=== PATIENT | female | born 1950 | race Hispanic/Latino ===

== ENCOUNTER 2025-05-24 13:09 | Emergency (ER) | payer OTHER ==
[~2025-05-24] VITALS: Ht 152.4 cm; Wt 64.4 kg
--- NOTE | 2025-05-24 13:25 | ERN ---
ED Note History of Present Illness Stated Complaint: RIGHT FACE PAIN Chief Complaint: Face Pain/Problem Time Seen by MD: 13:12 Dictation: PATIENT IS A 74-YEAR-OLD FEMALE HERE WITH HER DAUGHTER WITH COMPLAINTS OF HAVING PAINFUL CHEWING TO THE RIGHT TMJ AND LATERAL JAW FACE FOR THE LAST 3-4 MONTHS. NO FEVER NO CHILLS NO NAUSEA VOMITING. NO HEADACHE. SHE HAS ALREADY BEEN TO SEE HER PRIMARY CARE DOCTOR WHO REFERRED HER TO A DENTIST, WENT TO [facility] LAST WEEK. THEY DID A PANORAMIC 360 TOLD HER EVERYTHING WAS FINE HOWEVER SHE WAS REFERRED TO A SPECIALIST BECAUSE A PROBABLE TMJ DISEASE. SHE STATES NOBODY IN THE LAST 3-4 MONTHS HAS DONE ANYTHING FOR HER PAIN OTHER THAN MELOXICAM AND IBUPROFEN. Allergies: Coded Allergies: No Known Drug Allergies (Unverified Allergy, Unknown, 05/24/25) Past Medical History Past Medical History: High Cholesterol, Hypertension Surgical History: Hysterectomy History: Not Applicable RN Note Reviewed/Agreed w/PFSH: Yes Review of System Dictation CONSTITUTIONAL: NEGATIVE EXCEPT FOR HPI HEAD/FACE: NEGATIVE EXCEPT FOR HPI EENT: NEGATIVE EXCEPT FOR HPI RIGHT FACE/TMJ PAIN CHRONIC RESPIRATORY: NEGATIVE EXCEPT FOR HPI GASTROINTESTINAL/ABDOMINAL: NEGATIVE EXCEPT FOR HPI GENITOURINARY: NEGATIVE EXCEPT FOR HPI MUSCULOSKELETAL: NEGATIVE EXCEPT FOR HPI INTEGUMENTARY: NEGATIVE EXCEPT FOR HPI NEUROLOGICAL/PSYCH: NEGATIVE EXCEPT FOR HPI HEMATOLOGIC/LYMPHATIC: NEGATIVE EXCEPT FOR HPI ALL SYSTEMS NEGATIVE, EXCEPT NOTED ABOVE. 13 POINT REVIEW OF SYSTEMS ASSESSED AND ALL NEGATIVE EXCEPT FOR ABOVE. Initial Vital Sign VS Vital Signs Date Time Temp Pulse Resp B/P (MAP) Pulse Ox O2 Delivery O2 Flow Rate FiO2 05/24/25 13:11 98.2 77 16 151/85 98 Room Air Physical Exam Dictation VITAL SIGNS REVIEWED GENERAL APPEARANCE: ALERT, ORIENTED X 3, MODERATE ACUTE DISTRESS, WELL DEVELOPED, NOURISHED. HEAD AND FACE: NON-TRAUMATIC. EYES: PERRL, PINK CONJUNCTIVAS, EYELID NO TRAUMA, ANTERIOR CHAMBER WITH ARCUS SENILIS. EARS: PINNAS INTACT AND NO SIGNS OF TRAUMA OR ERYTHEMA EAR CANALS CLEAR AND NO DISCHARGE TM NO ERYTHEMA NOSE: NO DISCHARGE, NO BLEEDING. OROPHARYNX: MOUTH NORMAL, TONGUE PINK, INTACT FEELING TOOTH 2. NO GINGIVAL ER YTHEMA NO CARIES PROXIMAL THE PAIN. MILD CREPITATION WITH RANGE OF MOTION TO RIGHT TMJ. NO LYMPHADENOPATHY PHARYNX CLEAR,NO ERYTHEMA, TONSILS NO EXUDATES, NO ABSCESSES NOTED, MUCOUS MEMBRANE MOIST NECK: SUPPLE, NON-TENDER, NO THYROMEGALY, NO MASSES, NO JVD, NO BRUITS BREAST:DEFERRED CHEST:NO TENDERNESS, NO CREPITUS, NO PARADOXICAL MOVEMENT, NO RETRACTIONS LUNGS:CLEAR, WELL-VENTILATED, SYMMETRIC, NO RALES, NO WHEEZING, NO RHONCHI, NO STRIDOR, GOOD BREATH SOUNDS BILATERALLY HEART: REGULAR RATE, REGULAR RHYTHM, NO MURMUR, NO GALLOPS VASCULAR: NO PERIPHERAL EDEMA, ABDOMEN: SOFT, POSITIVE BOWEL SOUNDS, NONDISTENDED, NO GUARDING, NONTENDER, NO REBOUND, NO MASSES NO HEPATOMEGALY, NO SPLENOMEGALY, NO SUTHERLAND'S SIGN, NO HERNIAS. RECTAL: DEFERRED GENITAL: DEFERRED NEUROLOGICAL: NORMAL SPEECH, MOTOR FUNCTION INTACT, SENSORY FUNCTION INTACT MUSCULOSKELETAL: NECK NONTENDER, FULL RANGE OF MOTION, BACK NONTENDER, FULL RANGE OF MOTION, EXTREMITIES: NONTENDER, FULL RANGE OF MOTION SKIN: COLOR PINK, DRY, NO TURGOR, NO RASH, NO LACERATIONS, NO ABRASIONS, NO CONTUSIONS. LYMPHATIC: DEFERRED Results (Laboratory/Radiology) Laboratory/Radiology CT Maxillofacial without Intravenous Contrast. CLINICAL HISTORY: 74-year-old female with pain in the right face. TECHNIQUE: Axial computed tomography images of the face without intravenous contrast. Sagittal and coronal reformations performed. Dose reduction technique was used including one or more of the following: automated exposure control, adjustment of mA and kV according to patient size, and/or iterative reconstruction. CONTRAST: None. COMPARISON: None provided. FINDINGS: BONES: No acute fracture or focal osseous lesion. The mandible is intact. Mild degenerative changes of the temporomandibular joints bilaterally seen. SOFT TISSUES: Small lymph nodes are seen in the bilateral submandibular and triangles of the neck regions. SINUSES: The sinuses are clear. ORBITS: The orbits are normal. No retrobulbar hematoma or mass. IMPRESSION: 1. No acute findings within maxillofacial CT. 2. Mild degenerative changes of the temporomandibular joints bilaterally. /[facility] Reviewed?: Yes ED Course ED Course Orders Procedure Category Date Status Time Ct Maxillofacial W/O CT 05/24/25 Resulted Contrast 13:22 Hydrocodone/Apap PHA 05/24/25 Complete 5/325 ([place] 5/325mg) 13:30 Ketorolac PHA 05/24/25 Complete Tromethamine 30mg/Ml 13:30 Current Medications Medications (Trade) Dose Ordered Sig/Good Route PRN Reason Start Time Stop Time Status Last Admin Dose Admin Acetaminophen/ Hydrocodone Bitart (NORco 5/325MG) 1 tab ONCE ONCE PO 05/24/25 13:30 05/24/25 13:31 DC 05/24/25 14:03 Ketorolac Tromethamine (toRADol) 30 mg ONCE ONCE IM 05/24/25 13:30 05/24/25 13:31 DC 05/24/25 14:02 Vital Signs Date Time Temp Pulse Resp B/P (MAP) Pulse Ox O2 Delivery O2 Flow Rate FiO2 05/24/25 13:11 98.2 77 16 151/85 98 Room Air Medical Decision Making [facility] 1620/MEDICAL DISCHARGE MAKING BASED ON CT OF THE FACE ANTICIPATING TMJ DISEASE. PATIENT HAS SIGNIFICANT DJD BILATERAL TMJ RAISE WE WILL GIVE PATIENT PREDNISONE WITH THE OMEPRAZOLE TOLD FOLLOW UP WITH HER DENTIST NEXT 1-2 DAYS DX & DISP Disposition: Discharge Departure Impression: Primary Impression: TMJ (temporomandibular joint syndrome) Condition: Stable Scripts Omeprazole (Omeprazole) 40 Mg Capsule.dr 1 CAP PO DAILY for 30 Days, #30 CAP 0 Refills Prov: WILDA ALVES NP 05/24/25 Prednisone (Prednisone) 20 Mg Tablet 1 TAB PO AD for 6 Days, #14 TAB 0 Refills TAKE 1 TAB BY MOUTH THREE TIMES PER DAY X3 DAYS, THEN TAKE 1 TAB BY MOUTH TWICE A DAY X2 DAYS, THEN TAKE 1 TAB BY MOUTH ONCE A DAY X1 DAY. Prov: WILDA ALVES NP 05/24/25 Additional Instructions: FOLLOW-UP WITH PRIMARY CARE PROVIDER IN 1 TO 2 DAYS. TAKE MEDICATIONS DIRECTED HERE IN THE EMERGENCY ROOM. OKAY TO CONTINUE HOME MEDICATIONS UNLESS OTHERWISE DISCUSSED DURING YOUR VISIT IN THE EMERGENCY ROOM TODAY. RETURN TO YOUR NEAREST EMERGENCY ROOM IF SYMPTOMS WORSEN OR IF THERE IS NO IMPROVEMENT. CALL 911 IF YOU NEED IMMEDIATE ASSISTANCE. TAKE TYLENOL OR MOTRIN [id number] NEEDED AND IF NO CONTRAINDICATIONS ARE PRESENT. INCREASE ORAL HYDRATION. A WOUND CULTURE OR URINE CULTURE WAS ORDERED HERE IN THE EMERGENCY ROOM DEPARTMENT PLEASE FOLLOW-UP WITH PRIMARY CARE PROVIDER AND ADVISE THEM TO GET REPEAT PORTS FROM OUR FACILITY. IF YOU HAD ANY CRISTOBAL WRAP/SPLINTS THAT WERE APPLIED HERE, PLEASE DO NOT REMOVE THEM UNTIL YOU SEE YOUR PRIMARY CARE OR SPECIALTY. TAKE PREDNISONE AND OMEPRAZOLE DIRECTED. TAKE PREDNISONE DIRECTED WITH FOOD. FOLLOW UP WITH THE YOUR DENTIST IN THE NEXT 2-3 DAYS FOR MANAGEMENT. Time of Disposition: 16:24 I have reviewed the case, and I agree with, Diagnosis and Plan WILDA ALVES NP May 24, 2025 13:25
[2025-05-24] MEDS: HYDROcodone/APAP 5/325 1 TAB TABLET PO ONE (14:03)
--- NOTE | 2025-05-24 16:06 | HMCIMG ---
EXAM: CT Maxillofacial without Intravenous Contrast. CLINICAL HISTORY: 74-year-old female with pain in the right face. TECHNIQUE: Axial computed tomography images of the face without intravenous contrast. Sagittal and coronal reformations performed. Dose reduction technique was used including one or more of the following: automated exposure control, adjustment of mA and kV according to patient size, and/or iterative reconstruction. CONTRAST: None. COMPARISON: None provided. FINDINGS: BONES: No acute fracture or focal osseous lesion. The mandible is intact. Mild degenerative changes of the temporomandibular joints bilaterally seen. SOFT TISSUES: Small lymph nodes are seen in the bilateral submandibular and triangles of the neck regions. SINUSES: The sinuses are clear. ORBITS: The orbits are normal. No retrobulbar hematoma or mass. IMPRESSION: 1. No acute findings within maxillofacial CT. 2. Mild degenerative changes of the temporomandibular joints bilaterally. /[place]
[2025-05-24] MEDS ORDERED: PRED20TA3 PO (16:25)
[2025-05-24] MEDS ORDERED: OMEP40CA21 PO (16:25)
[2025-05-24 16:48] VITALS: BP 164/80; PULSE 70; RESP 18; TEMP 97.7; O2SAT 99
== END 2025-05-24 16:45 | disposition home or self-care (01) ==
LOC: EDH 13:09
DX: M26.621 Arthralgia of right temporomandibular joint (principal); M26.601 Right temporomandibular joint disorder, unspecified; E78.00 Pure hypercholesterolemia, unspecified; I10 Essential (primary) hypertension; Z90.710 Acquired absence of both cervix and uterus
CPT/HCPCS: 99285; 70486; 96372; J1885